=== PATIENT | female | born 1930 | race Caucasian/White ===

== ENCOUNTER 2016-11-16 14:47 | Observation (INO) | payer MEDICARE, OTHER ==
[~2016-11-16] VITALS: Ht 177.8 cm; Wt 54.5 kg
[2016-11-16 14:46] VITALS: BP 132/88; PULSE 122; RESP 20; O2SAT 98
[~2016-11-16 14:47] MED LIST: EZET1TAB PO; FISH1CAP15 PO; LANS30CA PO; MELO15TA14 PO; MULT-946 PO; SYN.112T PO; ZLP5T PO; boniva; calcium citrate PO; metamucil
--- NOTE | 2016-11-16 15:11 | ED.REPORT ---
HPI-Trauma Minor / Fall Date of Service Nov 16, 2016 ED Provider: Phillip Chambers MD Maliha is a 86-year-old female with a history of dementia presents to the ED for a ground-level fall. Patient notes that she was moving backwards away from her dining room table, tripped and fell on her right side. Currently she has some right-sided hip pain. Pain is worse with internal and external rotation. Patient notes that she has had hip replacement on that right side 6 years ago. Currently she denies any chest pain, palpitations, or shortness of breath. She denies loss of consciousness. She notes that she feels unstable but denies any dizziness or lightheadedness. Patient has no history of heart disease. She sees a residential treatment specialist and Dr. Arellano for recurrent falls. 2 months ago, they worked her up with a 30 day Holter monitor which was normal. Nursing Notes Stated Complaint: GROUND LEVEL FALL Chief Complaint: Multiple Trauma/Fall Allergies: Coded Allergies: Sulfa (Sulfonamide Antibiotics) (Verified Allergy, Severe, 07/14/11) Scheduled Calcium Citrate (Calcium Citrate) 250 Mg Tablet 1,000 MG PO DAILYWD Donepezil (Donepezil) 10 Mg Tablet 10 MG PO HS Ezetimibe/Simvastatin 10-40 mg (Vytorin 10-40 mg) 1 Each Tablet 1 TABLET PO HS Ibandronate Sodium (Ibandronate Sodium) 150 Mg Tablet 150 MG PO MONTHLY Lansoprazole ODT (Prevacid ODT) 15 Mg Tablet 15 MG PO QAM Levothyroxine (Levothyroxine) 112 Mcg Tablet 112 MCG PO QAM Multivitamin (Multivitamins) 1 Each Capsule 1 EACH PO DAILYWD Psyllium Husk (Metamucil) 0.4 Gram Capsule 1-2 CAPSULE PO DAILY General Time Seen by MD: 15:10 Chief Complaint Fall Ground-level fall with right-sided hip pain. Hx Obtained From: Patient, Spouse Arrived By: Ambulance Onset Occurred: Just prior to arrival Caused by: Fall on ground Context: Occurred at: Home injury Location: Hip right Quality: Sharp Pertinent Negative: Pt denies other symptoms Past Medical History Past Medical History Hypothyroidism Past Surgical History Right total hip Smoking History Never Smoker Social History Alcohol Use: Denies alcohol use Drug Use: Denies drug use Other Social History: Ambulatory Status Independent Review of Systems Basic Review of Systems Cardiovascular: No chest pain, No dyspnea on exertion, No orthopnea, No parox noct dyspnea, No palpitations GI: No abdominal pain, No anorexia, No nausea, No vomiting : No dysuria, No frequency Hematologic: No bleeding, No bruising Endocrine: No cold intolerance, No heat intolerance, No weight gain, No weight loss Allergy / Immune: No allergy Constitutional: Denies: Chills, Fever Respiratory: Denies: Dyspnea on exertion Skin: Denies Bruising, Denies Swelling Physical Exam Initial Vital Signs Vital Signs (First) Date Time Temp Pulse Resp B/P Pulse Ox O2 Delivery O2 Flow Rate FiO2 11/16/16 14:46 36.4 122 20 132/88 98 Room Air Head / Eyes: Atraumatic, Normocephalic, PERRL ENT: Mucous membranes moist, Conjunctiva normal, No scleral icterus Respiratory: Breath sounds normal, Clear to auscultation, No respiratory distress Cardiovascular: Regular rate & rhythm, Heart sounds normal, Intact distal pulses Abdomen / GI: Soft, Non-tender, No guarding, No rebound, No distention Back: No CVA tenderness Lymphatic: No lymphadenopathy Extremities: Vascular intact, Neuro intact, No swelling, No tenderness Skin: Warm, Dry, No cyanosis Psychiatric: Mood/affect normal, Behavior normal, Normal thought content Lower Extremity / Pelvis / MS: No swelling, No erythema Pain with passive range of motion from 5-110 internal and external rotation. No pain with palpation of lateral hip. Interpretation & Diagnostics Lab Results Interpretation Result Diagram: 11/17/16 0442 11/17/16 0442 Test 11/16/16 15:23 11/16/16 15:43 11/16/16 16:17 Prothrombin Time 10.6sec (8.1-12.5) Prothromb Time International Ratio 0.99ratio Total Bilirubin 0.3mg/dL (0.0-1.2) Aspartate Amino Transf (AST/SGOT) 21U/L (0-50) Alanine Aminotransferase (ALT/SGPT) 14U/L (0-32) Alkaline Phosphatase 50U/L (25-165) Troponin T < 0.010ug/L (0.0-0.011) Total Protein 6.1g/dL (6.4-8.4) Albumin 3.8g/dL (3.4-5.0) Hold Barrett Top Tube Received (Received) Thyroid Stimulating Hormone (TSH) 2.820uIU/mL (0.450-4.500) Free Thyroxine 1.29ng/dL (0.82-1.77) Urine Color Yellow (YELLOW) Urine Appearance Clear (CLEAR,HAZY) Urine pH 7.0 (5.0-8.0) Urine Specific [place] 1.005 (1.003-1.035) Urine Protein Negativemg/dL (NEG,TRACE) Urine Glucose (UA) Negativemg/dL (NEGATIVE) Urine Ketones Negativemg/dL (NEGATIVE) Urine Occult Blood Negative (NEGATIVE) Urine Nitrite Negative (NEGATIVE) Urine Bilirubin Negative (NEGATIVE) Urine Urobilinogen Normalmg/dL (NORMAL) Urine Leukocyte Esterase Trace (NEGATIVE) Urine RBC 0-2/hpf (0-2) Urine WBC 0-5/hpf (0-5) Urine Epithelial Cells Occasional/hpf (NONE-MOD) Urine Crystals None seen (NONE SEEN) Urine Bacteria Few/hpf (NONE-FEW) Urine Hyaline Casts None/lpf (NONE) Urine Granular Casts None seen (NONE SEEN) Urine Waxy Casts None seen (NONE SEEN) Urine Red Blood Cell Casts None seen (NONE SEEN) Urine White Blood Cell Casts None seen (NONE SEEN) Urine Mucus None seen (None Seen) Urine Trichomonas None seen (NONE SEEN) Urine Yeast None (NONE SEEN) Urinalysis Comment None Urine Culture Reflexed Indicated Hold Urine Received (Received) ECG Interpretation ECG Interpretation: Junctional tachycardia left anterior fascicular block LVH with secondary repolarization abnormality Time: 15:07 Interpreted by: ED physician X-Ray Interpretation Xray Interpretation: MPRESSION: 1. Slightly displaced para-prostheis fracture involving the right greater trochanter. 2. Right hip arthroplasty with prosthesis in anatomic alignment. X-Ray Ordered: Hip right Re-Eval/Medical Decision Med Decision/Clinical Course Maliha is a 86-year-old female who presents to the ED after a ground-level fall due to instability. X-ray of her right hip showed a periprosthesis fracture of her right greater trochanter. Dr. Patterson was consulted. He stated that this is a nonoperative fracture. Remain toe-touch pressure and follow-up with Dr. Kelly (orthopedic surgeon who performed her total hip) in 1 week. At rest she is tachycardic up to the 130s. Her tachycardia may be due to pain. Morphine was given. Patient is a very poor historian due to her dementia. She lives alone with her who a very unreliable loader technician. We would most likely need to admit her for a physical therapy and pain control. And arrange transfer to a [facility]. Consultation : [facility] / [facility] Consulted With: Orthopedic Call Returned at: 17:51 Note: Spoke w/ Dr. Escalera, orthopedic surgeon, about the pt. He says it is a non-operative fracture, weightbearing, and to admit here for physical therapy, and pain control. Discharge & Departure Impression: Primary Impression: Hip fracture, right Encounter type: initial encounter Fracture type: closed Qualified Code: S72.001A - Fracture of unspecified part of neck of right femur, initial encounter for closed fracture Disposition: ADMITTED TO HOSPITAL Discharge Condition All VS Reviewed: Yes Condition: Stable Patient Instructions: Hip Fracture (ED) Additional Instructions: Patient has sustained a right hip fracture. You are unable to sit up and move without pain. Will admit you to the hospital or physical therapy and pain control. Referrals: Magdaleno Arellano MD (PCP) EDSupervising Provider for APC: Phillip Chambers MD Attending Statement I discussed case with resident Dr. Mark and I evaluated the patient independently and agree with plan as above. In brief, 86-year-old female with history of right hip prosthesis presenting status post ground-level fall onto the right hip. There is a periprosthetic mildly displaced fracture. I discussed with our orthopedic surgeon who recommended consulting the orthopedic surgeon at [facility] where she had surgery before. I consulted the orthopedic surgeon at [facility] who said this is nonoperative recommended touchdown weight wearing no abduction nonoperative. Recommended physical therapy and pain control and follow-up in one week with orthopedics. The patient lives at home with her who has some dementia she will be admitted to the hospital for physical therapy and occupational therapy and placement and pain control. Phillip Chambers MD Nov 16, 2016 15:11 Nimisha Mark DO Nov 16, 2016 16:06 Yusuf Soni Nov 16, 2016 17:52
[2016-11-16] MEDS ORDERED: 0.9% Sodium Chloride 500 ML IV ONE (15:15)
[2016-11-16 15:35] LABS: BASOPHILS % (AUTO) 0.2 % (0-3); EOSINOPHILS % (AUTO) 0.8 % (0-5); MONOCYTES % (AUTO) 7.2 % (4-12); Mean Corpuscular Hemoglobin 30.8 pg (27.0-35.0); Mean Corpuscular Volume 93.8 fL (81-100); NEUTROPHILS % (AUTO) 78.4 % (40-74); Platelet Count 207 bil/L (150-400)
[2016-11-16] MEDS ORDERED: Diltiazem 5 mg/mL 5 mL Inj IVPUSH ONE (15:35)
[2016-11-16 16:00] LABS: INR 0.99 ratio
[2016-11-16 16:14] VITALS: BP 162/72; PULSE 74; RESP 20; O2SAT 98
[2016-11-16 16:18] LABS: TROPONIN T < 0.010 ug/L (0.0-0.011)
--- NOTE | 2016-11-16 16:20 | DRSVH ---
PROCEDURE: X-RAY RIGHT HIP COMPLETE, MINIMUM TWO VIEWS ([id number]) INDICATIONS: fall TECHNIQUE: AP pelvis with lateral view(s) of the right hip(s). COMPARISON: None. FINDINGS: Bones: There is a right hip arthroplasty. There is slightly displaced fracture adjacent to the femor al prosthesis stem involving the greater trochanter. No dislocations. Pelvic ring appears intact. N o definitive prosthesis loosening. No suspicious bony lesions. There is severe lower lumbar spine de generation. Soft tissues: The visualized bowel gas pattern is normal. No suspicious soft tissue calcifications. IMPRESSION: 1. Slightly displaced para-prostheis fracture involving the right greater trochanter. 2. Right hip arthroplasty with prosthesis in anatomic alignment. Dictated by: Jose Penn M.D. on 11/16/2016 at 16:11 Approved by: Jose Penn M.D. on 11/16/2016 at 16:17
[2016-11-16] MEDS ORDERED: IBAN150T8 PO (17:52)
[2016-11-16] MEDS ORDERED: DONE10TA42 PO (17:52)
[2016-11-16] MEDS ORDERED: LANS15TA3 PO (17:52)
[2016-11-16] MEDS ORDERED: LEVO112T4 PO (17:53)
[2016-11-16] MEDS ORDERED: EZET1TAB7 PO (17:53)
[2016-11-16] MEDS ORDERED: Ondansetron 2 mg/mL 2 mL Inj IVPUSH PRN (18:10)
[2016-11-16] MEDS ORDERED: Alum-Mag Hydrox-Simeth 30 mL Suspension PO PRN (18:10)
[2016-11-16] MEDS ORDERED: MULT1CAP33 PO (18:13)
[2016-11-16 18:20] LABS: APPEARANCE,URINE CLEAR (CLEAR,HAZY); COLOR,URINE YELLOW (YELLOW); OCCULT BLOOD,URINE NEGATIVE (NEGATIVE); UROBILINOGEN,URINE NORMAL (NORMAL)
[2016-11-16] MEDS ORDERED: CALCIT PO (18:36)
[2016-11-16] MEDS ORDERED: PSYL0.4C2 PO (18:36)
[2016-11-16 18:44] VITALS: BP 159/90; PULSE 88; RESP 20; O2SAT 96
[2016-11-16] MEDS ORDERED: HYDROcodone-APAP 5-325 mg Tablet PO PRN (18:45)
[2016-11-16] MEDS ORDERED: Polyethylene Glycol (PEG) 17 Gm Powder PO PRN (18:45)
[2016-11-16 20:15] VITALS: BP 186/81; PULSE 76; RESP 16; O2SAT 99
--- NOTE | 2016-11-16 21:19 | PCM.HPMED ---
Subjective Date of Service Nov 16, 2016 Primary Provider: Admitting Physician: Ligia Goodwin DO Primary Care Physician: Magdaleno Arellano MD Attending Physician: Ligia Goodwin DO Admit Status: From the Emergency Department, 23-Hour Observation, Remote Telemetry Chief Complaint: Ground-level fall and right hip pain. . History of Present Illness: Maliha Galeana is a 86-year-old female with a history of dementia who presented to [facility] emergency Department for a ground-level fall. When asked why the patient came to the emergency department she is unable to remember and reports it has been a "long day." Per the ER physician's report, the patient notes that she was moving backwards away from her dining room table when she tripped and fell on her right side. She denies loss of consciousness or head trauma. She then began to experience right-sided hip pain which is worse with internal and external rotation. She has had a previous hip replacement on that right side 6 years ago. Per the patient's , she has been having recurrent falls and recently fell and hit her head requiring charles. Her reports that he is afraid he will be unable to take care of her at home. The patient currently denies headache, chest pain, palpitations , shortness of breath, lightheadedness or dizziness, abdominal pain, nausea, vomiting, fever, chills, dysuria, constipation or diarrhea. Patient has no history of heart disease and 2 months ago she wore a 30 day Holter monitor to assess cardiac etiology for falls which was normal. Vital signs in the ER: Temperature 36.4. Pulse 74. Respiratory rate 20. Blood pressure 132/88. Pulse ox 98% room air. She received morphine sulfate IV 2 mg 1 in the ED. PCP is Dr. Magdaleno Arellano. . Review of Systems: A comprehensive review of systems was conducted with the patient and found to be negative except as above in the History of Present Illness. . Allergies Coded Allergies: Sulfa (Sulfonamide Antibiotics) (Verified Allergy, Severe, 07/14/11) Home Medications Calcium citrate 1000 mg daily. Donepezil 10 mg daily at bedtime. Vytorin 1040 mg tablet daily at bedtime. Ibandronate 150 mg monthly. Lansoprazole 15 mg daily. Levothyroxine 112 g daily. Multivitamin 1 tablet daily. Metamucil 1-2 capsules daily. . PMH 1. Dementia. 2. Osteoporosis. 3. GERD. 4. Hypothyroidism. 5. Hyperlipidemia. . Surgical History 1. Right hip replacement. 2. Rotator cuff surgery. 3. Bilateral salpingo-oophorectomy. 4. Shoulder dislocation. 5. Cholecystectomy. 6. Appendectomy. 7. Tonsillectomy. . Family History Mother and father who both of old age. Mother did not have osteoporosis or hip fracture as far she knows. . Social History Hx Alcohol Use: Yes (1 drink 5x/week) Hx Substance Use: No Hx Tobacco Use: No Smoking Status: Never Smoker Additional Information The patient has been for 51 years. They have 1 adopted child. She taught kindergarten and special education. . Exam Vital Signs Vital Sign - Last Date Time Temp Pulse Resp B/P Pulse Ox O2 Delivery O2 Flow Rate FiO2 11/16/16 16:14 74 20 162/72 98 Room Air 11/16/16 14:46 36.4 Exam General: Elderly female lying in bed and had no acute distress, poor hygiene, well-developed, well-nourished, appropriately interactive. HEENT: Normocephalic, atraumatic. External ears without defect. Pupils equal, round, and reactive to light. Anicteric sclerae, moist conjunctivae, and no lid lag. Oropharynx free of erythema and cobble stoning with moist mucosa. Neck: Supple with full range of motion. No lymphadenopathy or thyromegaly. Cardiovascular: Regular rate and rhythm without murmurs, rubs, or gallops appreciated Pulmonary: Clear to auscultation bilaterally without crackles, wheezes, or rhonchi. Normal respiratory effort with no use of accessory muscles. Abdomen: Soft, nontender, nondistended, bowel sounds present. No hepatosplenomegaly or masses appreciated. Extremities: No clubbing, cyanosis, or edema. Small bruise on right shoulder. Skin: Normal temperature, turgor, and texture; no rash, ulcers, or subcutaneous nodules appreciated. Neurological: Cranial nerves grossly intact. Normal muscle strength, tone, and bulk. Reflexes, coordination, and sensory function within normal limits. Known gait impairment with frequent falls. Psychiatric: Normal mood and affect. Alert and oriented to person, place, and time. . Lab and Diagnostics Labs Item Value Date Time Urine Color Yellow 11/16/16 1617 Urine Appearance Clear 11/16/16 1617 Urine pH 7.0 11/16/16 1617 Urine Specific [place] 1.005 11/16/16 1617 Urine Protein Negative mg/dL 11/16/16 1617 Urine Glucose (UA) Negative mg/dL 11/16/16 1617 Urine Ketones Negative mg/dL 11/16/16 1617 Urine Occult Blood Negative 11/16/16 1617 Urine Nitrite Negative 11/16/16 1617 Urine Bilirubin Negative 11/16/16 1617 Urine Urobilinogen Normal mg/dL 11/16/16 1617 Urine Leukocyte Esterase Trace 11/16/16 1617 Urine RBC 0-2 /hpf 11/16/16 1617 Urine WBC 0-5 /hpf 11/16/16 1617 Urine Epithelial Cells Occasional /hpf 11/16/16 1617 Urine Crystals None seen 11/16/16 1617 Urine Bacteria Few /hpf 11/16/16 1617 Urine Hyaline Casts None /lpf 11/16/16 1617 Urine Granular Casts None seen 11/16/16 1617 Urine Waxy Casts None seen 11/16/16 1617 Urine Red Blood Cell Casts None seen 11/16/16 1617 Urine White Blood Cell Casts None seen 11/16/16 1617 Urine Mucus None seen 11/16/16 1617 Urine Trichomonas None seen 11/16/16 1617 Urine Yeast None 11/16/16 1617 Urinalysis Comment None 11/16/16 1617 Urine Culture Reflexed Indicated 11/16/16 1617 Item Value Date Time Prothrombin Time 10.6 sec 11/16/16 1523 Prothromb Time International Ratio 0.99 ratio 11/16/16 1523 Item Value Date Time Calcium Level 9.0 mg/dL 11/16/16 1523 Total Bilirubin 0.3 mg/dL 11/16/16 1523 Aspartate Amino Transf (AST/SGOT) 21 U/L 11/16/16 1523 Alanine Aminotransferase (ALT/SGPT) 14 U/L 11/16/16 1523 Alkaline Phosphatase 50 U/L 11/16/16 1523 Troponin T < 0.010 ug/L 11/16/16 1523 Total Protein 6.1 g/dL L 11/16/16 1523 Albumin 3.8 g/dL 11/16/16 1523 Thyroid Stimulating Hormone (TSH) 2.820 uIU/mL 11/16/16 1543 Free Thyroxine 1.29 ng/dL 11/16/16 1543 Result Diagram: 11/16/16 1523 11/16/16 1523 X-Rays, CTs and MRIs X-RAY RIGHT HIP COMPLETE, MINIMUM TWO VIEWS IMPRESSION: 1. Slightly displaced para-prostheis fracture involving the right greater trochanter. 2. Right hip arthroplasty with prosthesis in anatomic alignment. Dictated by: Jose Penn M.D. on 11/16/2016 at 16:11 . Assessment & Plan Maliha Galeana is a 86-year-old female with a history of dementia who presented to [facility] emergency Department for a ground-level fall. 1. Acute displaced para-prosthesis fracture involving right greater trochanter , present on admission. Active. - The patient presented after ground level fall with right hip pain worse with internal and external rotation. - Right hip x-ray demonstrated slightly displaced para-prosthesis fracture involving the right greater trochanter with right hip arthroplasty with prosthesis in anatomic alignment, as above. - Ordered acetaminophen 975 mg every 6 hours as needed for mild pain, hydrocodone 5-325 mg 1-2 tabs every 4 hours as needed for [id number] pain , and morphine 1-2 mg IV every 2 hours as needed for severe pain. - Ordered physical therapy. - Dr. Ephraim Martinez in the ED discussed patient with Dr. Patterson at [facility] orthopedics who recommended toe-touch weightbearing, pain control and follow- up with Dr. Kelly (orthopedic surgeon who performed her total hip) in 1 week. If any questions regarding discharge or follow-up contact [facility] orthopedics. Chronic problems: 2. Dementia, present on admission. Stable. - Continue donepezil 10 mg daily at bedtime. 3. GERD, present on admission. Stable. - Continue equivalent of Lansoprazole 15 mg daily. 4. Hypothyroidism, present on admission. Stable. - TSH and free T4 normal, as above. - Continue Levothyroxine 112 g daily. 5. Hyperlipidemia, present on admission. Stable. - Continue equivalent of Vytorin 1040 mg tablet daily at bedtime. 6. Osteoporosis, present on admission. Stable. - Continue calcium supplementation and Ibandronate 150 mg monthly. PRN antiemetics: Zofran and Maalox. PRN bowel regimen: Senna and MiraLAX. PRN analgesics: Tylenol. Patient is admitted under observation status with expected length of stay less than 2 midnights due to severity of presenting symptoms, risk of adverse event, and complexity of treatment plan. . VTE Prophylaxis: Sub-Q Heparin (Unfractionated) Resuscitation Status: CPR: Attempt Resuscitation Attending Statement The patient was seen and examined together with house staff on 11/16/2016 and I agree with the history, exam and plan as outlined in the note above. copies to: Magdaleno Arellano MD, [place] M DO Nov 16, 2016 18:48 Ligia Goodwin DO Nov 17, 2016 04:10
[2016-11-16 23:22] VITALS: BP 129/69; PULSE 73; RESP 18
[2016-11-17] VITALS (7 sets, daily range): BP systolic 92–174; BP diastolic 61–86; PULSE 66–93; RESP 16–18; O2SAT 94–99
[2016-11-17] MEDS: Heparin 5,000 Unit/mL Inj SUBQ SCH ×3 (02:32→18:00)
[2016-11-17 05:11] LABS: BASOPHILS % (AUTO) 0.4 % (0-3); EOSINOPHILS % (AUTO) 0.7 % (0-5); MONOCYTES % (AUTO) 7.3 % (4-12); Mean Corpuscular Hemoglobin 30.4 pg (27.0-35.0); Mean Corpuscular Volume 93.5 fL (81-100); NEUTROPHILS % (AUTO) 78.9 % (40-74); Platelet Count 192 bil/L (150-400)
--- NOTE | 2016-11-17 05:57 | NUR ---
Admit Pt arrived to [facility] floor, with , at 1945 from ED due to GLF at home. Per MD, fx right hip, in-operable, treatment plan =PT, NWB, pain management. History of right hip replacement. Baseline dementia, needs re-orientation to place/time. Observed pt referring to in room as "uncle". Pt has had no c/o pain this shift, denies pain medications. Pt is incontinent of urine, impulsive, not appropriate with call light. Bed kaylee alarm on for pt safety.
[2016-11-17] MEDS ORDERED: Pantoprazole 20 mg ER24 Tablet PO SCH (08:00)
--- NOTE | 2016-11-17 10:35 | PCM.PNMED ---
Subjective Date of Service Nov 17, 2016 Subjective Maliha Galeana is a 86-year-old female with a history of dementia who presented to [facility] emergency Department for a ground-level fall. When asked why the patient came to the emergency department she is unable to remember and reports it has been a "long day." Per the ER physician's report, the patient notes that she was moving backwards away from her dining room table when she tripped and fell on her right side. She denies loss of consciousness or head trauma. She then began to experience right-sided hip pain which is worse with internal and external rotation. She has had a previous hip replacement on that right side 6 years ago. Per the patient's , she has been having recurrent falls and recently fell and hit her head requiring charles. Her reports that he is afraid he will be unable to take care of her at home. The patient currently denies headache, chest pain, palpitations , shortness of breath, lightheadedness or dizziness, abdominal pain, nausea, vomiting, fever, chills, dysuria, constipation or diarrhea. Patient has no history of heart disease and 2 months ago she wore a 30 day Holter monitor to assess cardiac etiology for falls which was normal. patient is in bed, at the bed side. Patient is demented, trying to get out of bed. Exam Vital Signs Vital Sign - Last Date Time Temp Pulse Resp B/P Pulse Ox O2 Delivery O2 Flow Rate FiO2 11/17/16 10:17 92 11/17/16 05:48 36.7 16 166/80 99 Room Air Intake and Output 11/16/16 11/16/16 11/17/16 Cumulative From/Thru 15:00 23:00 07:00 11/16/16 14:46 - 11/17/16 06:41 Intake Total 500 ml 200 ml 700 ml Output Total 1800 ml 1800 ml Balance 500 ml -1600 ml -1100 ml Intake Oral 200 ml 200 ml IV Total 500 ml 500 ml Output Urine Total 1800 ml 1800 ml Exam GENERAL: Alert, not in distress, weak, demented HEAD: atraumatic, normocephalic, no bruises. EYES: YANI, EOMI, anicteric, able to fully open and close eyelids SKIN: Skin color normal, turgor normal. No visible rashes or lesions. EAR, NOSE, MOUTH, THROAT: Lips, oral mucosa, tongue gums, oropharynx are moist , pink, no lesions. Ears normal appearance, no lesions. NECK: no jugulovenous distention; supple ROM normal. RESPIRATORY: Lungs clear to auscultation. Good diaphragmatic excursion. CARDIAC: normal S1 and S2; no rubs, murmurs, or gallops; regular rate and rhythm ABDOMEN: Abdomen soft, non-tender. BS normal. No masses or organomegaly. MUSCULOSKELETAL: ROM full, muscles are not tender EXTREMITIES: no pitting edema in LE, no new deformities or skin discoloration. NEURO: Alert, oriented X 1, Sensation grossly intact., Cranial nerves II-XII intact, Grossly normal motor function. PULSES: 2+ radial, 2+ carotid REVIEW OF SYSTEMS: GENERAL: no malaise, no fevers., SEE HPI HEENT: Negative for frequent or significant headaches All other reviewed and negative other than HPI. IVs and Medications Medications Reviewed: Medications were reviewed in detail Lab and Diagnostics Result Diagram: 11/17/1644111/[id number]/16441 X-Rays, CTs and MRIs X-RAY RIGHT HIP COMPLETE, MINIMUM TWO VIEWS IMPRESSION: 1. Slightly displaced para-prostheis fracture involving the right greater trochanter. 2. Right hip arthroplasty with prosthesis in anatomic alignment. Dictated by: Jose Penn M.D. on 11/16/2016 at 16:11 . Assessment & Plan Maliha Galeana is a 86-year-old female with a history of dementia who presented to [facility] emergency Department for a ground-level fall. 1. Acute displaced para-prosthesis fracture involving right greater trochanter , present on admission. - stable - The patient presented after ground level fall with right hip pain worse with internal and external rotation. - Right hip x-ray demonstrated slightly displaced para-prosthesis fracture involving the right greater trochanter with right hip arthroplasty with prosthesis in anatomic alignment, as above. Plan - Tylenol, PO and IV opioids for pain - Physical therapy. - Dr. Ephraim Martinez in the ED discussed patient with Dr. Patterson at [facility] orthopedics who recommended toe-touch weightbearing, pain control and follow- up with Dr. Kelly (orthopedic surgeon who performed her total hip) in 1 week. If any questions regarding discharge or follow-up contact [facility] orthoped[facility]. 2. Dementia, present on admission - Stable. - Continue donepezil 10 mg daily at bedtime. 3. GERD, present on admission. - Stable. - Continue equivalent of Lansoprazole 15 mg daily. 4. Hypothyroidism, present on admission - Stable. - TSH and free T4 normal, as above. - Continue Levothyroxine 112 g daily. 5. Hyperlipidemia, present on admission - Stable. - Continue equivalent of Vytorin 1040 mg tablet daily at bedtime. 6. Osteoporosis, present on admission - Stable. - Continue calcium supplementation and Ibandronate 150 mg monthly. . DVT PROPHYLAXIS: Heparin Code status: Patient would like to be full code Disposition: discharge after patient improves. Patient may need placement Plan of care discussed with treatment team; Labs, radiology tests reviewed. Plan of care, medication side effects, home medication, diagnostic procedures and available alternatives were discussed and reviewed with patient. All questions answered. Patient verbalized understanding, approved and agreed to plan of care. . Resuscitation Status: CPR: Attempt Resuscitation Eric Sharif MD Nov 17, 2016 10:35
--- NOTE | 2016-11-17 11:33 | NUR ---
Evaluation completed. Please go to "Notes" then click on "Assessments and Notes" (bottom left corner of screen). Then select appropriate discipline tab on top of screen.
--- NOTE | 2016-11-17 13:16 | NUR ---
Case Management: BUSTOS given and explained to , Angel. Conchita ALBERT,RN
[2016-11-17] MEDS ORDERED: .Epic Conversion Completed XX PRN (15:30)
--- NOTE | 2016-11-17 18:22 | NUR ---
PAIN/MENTATION/IMPULSIVE Patient medicated with Tylenol for pain feldt score 4/10. Patient has dementia so unable to use pain scale to rate pain , pt is non wt bearing right lower ext but does not follow commands all the time. Patient impulsive trying to get up indep needs reorientation to surroundings. is at bedside and attempts to redirect her as well. Patient up with physical therapy today.
--- NOTE | 2016-11-17 22:25 | NUR ---
Activity/Tele Pt impulsive, baseline dementia, confused. Coopertive with cares, constantly needs reminding of mobility precautions for safety as well as orientation to time/place/diagnosis. Pt on kaylee/bed alarm for safety. Left arm IV was pulled out by pt. No new IV at this time, no IV medications scheduled at this time - receiving PO Tylenol for pain. oven technician called at 2225, pt A flutter HR 124, pt asymptomatic, observed to be talking to in room and twirling her hair with her fingers. Per ANVIL WORKER, was just in pt room helping to re-position pt in bed.
--- NOTE | 2016-11-17 22:31 | NUR ---
Charting See paper charting starting @ 0000 11/18/16. [employer] transition.
== END 2016-11-18 01:32 | disposition admitted as inpatient to this hospital (09) ==
LOC: SED 14:47 → EDBD 14:47 → INTOOBSV 18:28 → OSC 18:28
PROVIDERS: ADMIT Internal Medicine; ATTEND Internal Medicine
DX: R69 Illness, unspecified (principal)